=== PATIENT | male | born 1950 | race Caucasian/White ===

== ENCOUNTER → 2018-01-20 | Day surgery (SDC) | payer MEDICARE ==
--- NOTE | 2018-01-19 12:07 | Diagnostic Imaging Report ---
PROCEDURE:CHEST 2 VIEWS TECHNIQUE:PA and lateral chest INDICATION:Preoperative evaluation for urologic surgery COMPARISON:None. FINDINGS: Lungs are clear and symmetrically inflated. No pleural effusions. Normal heart size, mediastinal contour, and pulmonary vasculature. Intact skeleton. CONCLUSION: Normal. Dictated by: Wagner Dsouza M.D. on 01/19/2018 at 12:08 Electronically approved by: Wagner Dsouza M.D. on 01/19/2018 at 12:08
[~2018-01-20] MED LIST: AMITRIPTYLINE H25 MG PO; AMLODIPINE BESY10 MG PO; ASPIRIN81 MG; ATENOLOL50 MG; ATORVASTATIN CA10 MG PO; DEXAMETHASONE SOD PHOS INJ 4 MG/ML VIAL ONE; FENTANYL CITRATE/PF 100MCG/2 ML INJ ONE; FUROSEMIDE INJ 10 MG/ML 4 ML VIAL ONE; ISOSORBIDE MONO20 MG PO; LEVOFLOXACIN 500MG/D5W 100ML 100 ML IV ONE; LIDOCAINE HCL 2% LOCAL INJ 5 ML SDV VIAL INJ ONE; LORAZEPAM0.5 MG PO; MIDAZOLAM HCL 2 MG/2 ML VIAL ONE; OMEPRAZOLE40 MG; ONDANSETRON HCL INJ 2 MG/ML VIAL ONE; PROPOFOL IV EMULSION 10 MG/ML 20 ML VIAL ONE; SEVOFLURANE INHAL SOLN 250 ML PEN BTL ONE; [UNRECOGNIZED DRUG - OTHER]
--- OUTSIDE RECORDS SUMMARY | 2018-01-20 08:39 | XMS REPORT ---
[facility] Address Unknown Phone Unavailable Care Team Providers Care Environmental Technology Professor Name Role Phone SHARON RYDER Unavailable Unavailable Problems This patient has no known problems. Allergies, Adverse Reactions, Alerts This patient has no known allergies or adverse reactions. Medications This patient has no known medications. Results Test Description Test Time Test Comments Text Results Atomic Results Result Comments CHEST 2 VIEWS [place] [address] Patient Name: BONITA BABB MR #: [id number] : 1950 Age/Sex: 67/M Req #: [id number] Adm Physician: Ordered by: SHOSHANA CHERY MD Report #: [id number] Location: OR Room/Bed: Procedure: [id number] DX/CHEST 2 VIEWS Exam Date: Exam Time: REPORT STATUS: Signed PROCEDURE: CHEST 2 VIEWS TECHNIQUE: PA and lateral chest INDICATION: Preoperative evaluation for urologic surgery COMPARISON: None. FINDINGS: Lungs are clear and symmetrically inflated. No pleural effusions. Normal heart size, mediastinal contour, and pulmonary vasculature. Intact skeleton. CONCLUSION: Normal. Dictated by: Lily Dsouza M.D. on 01/19/2018 at 12:08 Electronically approved by: Lily Dsouza M.D. on 01/19/2018 at 12:08 Dictated By: LILY DSOUZA MD [id number] Transcribed By: MAHENDRA on 01/19/181207 COPY TO: SHOSHANA CHERY MD
--- OUTSIDE RECORDS SUMMARY | 2018-01-20 08:39 | XMS REPORT | Clinical Summary ---
Author Author [facility] Address Unknown Phone Unavailable Care Team Providers Care Window Air Conditioner Installer Name Role Phone Domo Schumacher MD PCP Allergies Not on File Current Medications Not on file Active Problems Not on file Encounters Date Type Specialty Care Team Description 06/01/2017 [facility]iology Heladio Muro Benign localized Encounter hyperplasia of prostate with urinary retention 06/01/2017 Hospital Radiology Heladio Muro Benign localized Encounter hyperplasia of prostate with urinary retention 05/18/2017 Transcribe Access Heladio Muro Benign localized Orders hyperplasia of prostate with urinary retention (Primary Dx) after 01/19/2017 Social History Tobacco Use Types Packs/Day Years Used Date Never Assessed Sex Assigned at Date Recorded Not on file Last Filed Vital Signs Not on file Plan of Treatment Health Maintenance Due Date Last Done Comments COLONOSCOPY 2001 ZOSTER VACCINE 2011 PNEUMOCOCCAL 2016 POLYSACCHARIDE VACCINE AGE 65 AND OVER PNEUMOCOCCAL-13 2016 INFLUENZA VACCINE 05/26/2017 Results * ECG 12 lead (01/18/2018 11:38 AM) Component Value Ref Range Ventricular rate 88 Atrial rate 88 IL interval 140 QRSD interval 92 QT interval 390 QTC interval 471 P axis 1 29 QRS axis 1 -17 T wave axis 35 EKG impression Normal sinus rhythm-Normal ECG-No previous ECGs available- Specimen Performing Laboratory [facility] [address] [place] [address] * US Renal (06/01/2017 10:47 AM) Specimen Performing Laboratory [facility] [address] [place] [address] Narrative Examination:US RENAL Clinical history:"N40.1 Benign prostatic hyperplasia with lower urinary tract symptoms, URINARY OBSTRUCTION" Comparison:There are no prior studies for comparison. IMPRESSION: The right kidney measures 11.1 x 6.3 x 6.2 cm.The echogenicity of the right renal parenchyma is unremarkable.There are no apparent cysts, solid masses, hydronephrosis, or echogenic foci to suggest renal calculi within the right kidney. The left kidney measures 12.1 x 5.3 x 6.2 cm.The echogenicity of the left renal parenchyma is unremarkable.There are no apparent cysts, solid masses, hydronephrosis, or echogenic foci to suggest renal calculi within the left kidney. The urinary bladder is unremarkable in sonographic appearance.The pre- and post-void urinary bladder volumes are 218 and 33 mL, respectively. [id number] Procedure Note Hm Interface, Radiology Results Incoming - 06/01/2017 12:12 PM CDT Examination: US RENAL Clinical history: "N40.1 Benign prostatic hyperplasia with lower urinary tract symptoms, URINARY OBSTRUCTION" Comparison: There are no prior studies for comparison. IMPRESSION: The right kidney measures 11.1 x 6.3 x 6.2 cm. The echogenicity of the right renal parenchyma is unremarkable. There are no apparent cysts, solid masses, hydronephrosis, or echogenic foci to suggest renal calculi within the right kidney. The left kidney measures 12.1 x 5.3 x 6.2 cm. The echogenicity of the left renal parenchyma is unremarkable. There are no apparent cysts, solid masses, hydronephrosis, or echogenic foci to suggest renal calculi within the left kidney. The urinary bladder is unremarkable in sonographic appearance. The pre- and post-void urinary bladder volumes are 218 and 33 mL, respectively. [id number] * US Prostate (06/01/2017 10:46 AM) Specimen Performing Laboratory [facility] [address] [place] [address] Narrative EXAMINATION:US PROSTATE CLINICAL HISTORY:N40.1 Benign prostatic hyperplasia with lower urinary tract symptoms, URINARY OBSTRUCTION COMPARISON:None. Multiple transrectal sonographic images of the prostate gland are obtained using real-time ultrasonography. FINDINGS: The prostate gland measures 5.5 x 4.3 x 5.3 cm. The prostate volume is 65.1 cc cc. The prostate gland is heterogeneous. Calcifications are seen within the prostate. The seminal vesicles are unremarkable. IMPRESSION: 1. The prostate gland is enlarged. 2. Prostate calcifications are present. Procedure Note Interface, Radiology Results Incoming - 06/01/2017 4:28 PM CDT EXAMINATION: US PROSTATE CLINICAL HISTORY: N40.1 Benign prostatic hyperplasia with lower urinary tract symptoms, URINARY OBSTRUCTION COMPARISON: None. Multiple transrectal sonographic images of the prostate gland are obtained using real-time ultrasonography. FINDINGS: The prostate gland measures 5.5 x 4.3 x 5.3 cm. The prostate volume is 65.1 cc cc. The prostate gland is heterogeneous. Calcifications are seen within the prostate. The seminal vesicles are unremarkable. IMPRESSION: 1. The prostate gland is enlarged. 2. Prostate calcifications are present. after 01/19/2017 Insurance Payer Benefit Subscriber ID Type Phone Address Plan / Group UHC MEDICARE AARP xxxxxxxxx O MEDICARE COMPLETE [id number]
--- NOTE | 2018-01-20 14:51 | Operative Report ---
DATE OF PROCEDURE: January 20, 2018 PREOPERATIVE DIAGNOSIS: BPH. POSTOPERATIVE DIAGNOSIS: BPH. OPERATION 1. Cystourethroscopy. 2. Transurethral resection of the prostate, laser XPS. PIPE CONNECTOR: Dr. De Oliveira ANESTHETIC: General. INDICATIONS: Mr. Allen is a 67-year-old male who presented with a chief complaint of lower urinary tract obstructive symptoms. Rectal exam showed an enlarged prostate gland, about 50 to 60 grams, firm and benign. Cystourethroscopy showed an enlarged, occlusive prostate gland. PSA was normal. His AUA score was 28. DESCRIPTION OF PROCEDURE: This patient was placed on the table in the lithotomy position and was prepped and draped in a sterile manner after satisfactory anesthesia. A 23-Somali continuous-flow cystoresectoscope was used, and cystourethroscopy was performed and confirmed the previous cystoscopic findings. Vaporization of the prostate was then started, starting from 11 to 7 o'clock, starting at the bladder neck to just proximal to the verumontanum and down to the capsular fibers. Hemostasis was obtained all through and was very adequate. Vaporization was then started, starting at 1 o'clock to 5 o'clock, starting at the bladder neck and going all the way down to just proximal to the verumontanum and down to the capsular fibers. Again, hemostasis was obtained and was very adequate. At the termination of the procedure, it was noted that both ureteral orifices and the external sphincter were intact without laser energy damage. The Carrasco catheter was placed, 22 Somali. Plan for this patient is to return to the office on Thursday, when the Carrasco catheter will be removed. Discharge medications are: 1. Augmentin 500 mg one 3 times a day for 1 week. 2. Ultracet tablet 1 every 6 hours p.r.n., and he was given 40. He is to return to the office in 2 days. Job#: [id number]
== END | disposition home or self-care (01) ==
LOC: OR 08:37
PROVIDERS: ATTEND Specialist
DX: N40.1 Benign prostatic hyperplasia with lower urinary tract symptoms (principal); N13.8 Other obstructive and reflux uropathy; I10 Essential (primary) hypertension; F41.9 Anxiety disorder, unspecified; Z01.818 Encounter for other preprocedural examination; Z79.82 Long term (current) use of aspirin
CPT/HCPCS: 52648; 71046; J1100; J1940; J1956; J2001; J2250; J2405